=== PATIENT | female | born 1990 | race Two or more races ===

== ENCOUNTER → 2025-03-15 | Emergency (ER) | payer OTHER ==
[~2025-03-15] VITALS: Ht 165.1 cm; Wt 80.7 kg
[~2025-03-15] MED LIST: IBU600 MG PO
== END | disposition home or self-care (01) ==
LOC: ER 20:40
DX: S93.492A Sprain of other ligament of left ankle, initial encounter (principal); X50.9XXA Other and unspecified overexertion or strenuous movements or postures, initial encounter; Y93.89 Activity, other specified; Y92.89 Other specified places as the place of occurrence of the external cause